=== PATIENT | female | born 1945 | race Caucasian/White ===

== ENCOUNTER 2025-07-06 11:09 | Emergency (ER) | payer MEDICARE, MEDICAID, SELFPAY ==
[2025-07-06 11:13] VITALS: BP 141/79; PULSE 94; RESP 18; TEMP 37.3; O2SAT 97; BMI 21.9
[2025-07-06 11:18] VITALS: PULSE 92; O2SAT 97
[2025-07-06 11:45] VITALS: BP 180/77; PULSE 95; RESP 18; TEMP 36.9; O2SAT 97; BMI 21.9
--- NOTE | 2025-07-06 11:46 | EDNOTE_ITS ---
<Statement entered by Briana Hill MD - 07/21/25 07:24> As co-signing physician, I was present and available for consult prn. I concur with the plan and care as documented by the midlevel provider. ED Back Injury Pain RME/HPI General Chief Complaint: Back Pain/Injury Stated Complaint: BACK PAIN Time Seen by Provider: 07/06/25 11:34 Arrival date/time: 07/06/25 11:09 79-year-old female patient with significant history of scoliosis, came in for evaluation regarding low back pain. Onset of symptoms since yesterday patient woke up with low back pain, described as dull ache, severity moderate associated with urinary frequency. Patient denies any dysuria. Denies any urinary inc ontinence denies any bowel incontinence denies any fall or trauma denies any fever denies any vomiting denies any abdominal pain. No medication was taken prior to ER visit. Related Data Home Medications ?Medication ?Instructions ?Recorded ?Confirmed clonidine HCl 0.1 mg tablet 0.1 mg PO BID #0 tabs 09/1801/03/21 fluticasone furoate 27.5 2 spry NASAL QDAY #0 spry 01/03/21 mcg/actuation nasal spray,suspension (Veramyst) hydrochlorothiazide 25 mg tablet 25 mg PO QAM #0 tabs 09/29/14 01/03/21 lovastatin 40 mg tablet 40 mg PO HS #0 tabs 09/29/14 01/03/21 montelukast 10 mg tablet 10 mg PO AM #0 tabs 09/29/14 01/03/21 (Singulair) multivitamin (Tab-A-Olga tablet) 1 tab PO QDAY ##0 07/0401/03/21 omeprazole 20 mg capsule,delayed 1 tab PO DAILY ##0 01/03/21 release tramadol 50 mg tablet (Ultram) 50 mg PO Q4HR PRN PAIN #0 tabs 09/29/14 01/03/21 trazodone 50 mg tablet 50 mg PO QDAY #0 tabs 01/03/21 albuterol 90 mcg/actuation aerosol 90 mcg inhalation Q 6HR 11/08/20 01/03/21 inhaler amlodipine 5 mg tablet 5 mg PO QDAY 11/08/20 budesonide-formoterol HFA 160 2 puff inhalation BID 01/03/21 mcg-4.5 mcg/actuation aerosol inhaler (Symbicort) cholecalciferol (vitamin D3) 25 25 mcg PO QDAY 1 01/03/21 mcg (1,000 unit) tablet (Vitamin D3) ferrous sulfate 325 mg (65 mg 325 mg PO QDAY 11/08/20 01/03/21 iron) tablet (iron) fluticasone 250 mcg-salmeterol 50 1 inh inhalation BID 11/08/20 01/03/21 mcg/dose blistr powdr for inhalation (Advair Diskus) ipratropium 0.5 mg-albuterol 3 mg 3 ml inhalation Q4HR 11/08/20 01/03/21 (2.5 mg base)/3 mL nebulization soln losartan 100 mg tablet 100 mg PO QDAY 11/08/2012/19 metoprolol tartrate 50 mg tablet 50 mg PO QDAY 1 01/04/21 omega-3 fatty acids 1 cap PO QDAY 11/08/2001/03 budesonide-formoterol HFA 160 2 puff inhalation BID 01/03/21 mcg-4.5 mcg/actuation aerosol inhaler (Symbicort) Previous Rx's ?Medication ?Instructions ?Recorded acetaminophen 300 mg-codeine 30 mg 1 tab PO Q8H PRN pa in #20 tabs 07/06/25 tablet cyclobenzaprine 5 mg tablet 5 mg PO TID PRN muscle spa sm #15 07/06/25 tabs Allergies Allergy/AdvReac Type Severity Reaction Status Date / Time bacitracin (From Neosporin Allergy Mild Rash Verified 07/06/25 11:18 ([id number])) neomycin (From Neosporin Allergy Mild Rash Verified 07/06/25 11:18 ([id number])) Penicillins Allergy Mild Rash Verified 07/06/25 11:18 polymyxin B (From Neosporin Allergy Mild Rash Verified 07/06/25 11:18 ([id number])) Review of Systems Review of Systems Narrative Review of Systems: review of system reviewed and within normal limits except mentioned in HPI. ED Exam Narrative Physical exam: VITAL SIGNS: Reviewed. GENERAL APPEARANCE: Alert and interactive, follows commands, no acute distress, HEAD AND FACE: Non-traumatic. ENT: PERRL, pink conjunctivitis, eyelid no trauma, Mucous membrane moist. NECK: Supple, nontender, no nuchal rigidity. CHEST: No tenderness, no crepitus, no paradoxical movement, no retractions. LUNGS: Clear, well ventilated, symmetric, no rales, no wheezing, no ronchi, no s tridor, good breath sounds bilaterally. HEART: Regular rate, regular rhythm, no murmur, no gallops. ABDOMEN: Soft, positive bowel sounds, nondistended, no guarding, nontender, no rebound, no masses, RECTAL: Deferred. GENITAL: Deferred. NEUROLOGICAL: Gross motor function intact sensory function intact, Appropriate for age. MUSCULOSKELETAL: low back tenderness I reviewed here but I do not think so, full range of motion. EXTREMITIES: Nontender, full range of motion. SKIN: Color pink, dry, no rash, no lacerations, no abrasions, no contusions. LYMPHATICS: Deferred. Course Quality Measures none Orders Category Date Time Status XR lumbar spine 2-3V Stat Exams 07/06/25 11:51 Completed XR sacrum coccyx min 2V Stat Exams 07/06/25 11:51 Completed CBC [CBC] Stat Lab 07/06/25 12:02 Completed CMP [Comprehensive Metabolic Panel] Stat Lab 07/06/25 12:02 Completed UA, C/S IF [Urinalysis, C/S if Indicated] Stat Lab 07/06/25 14:43 Completed HYDROcodone/APAP 10/325 [[place] 10/325] Med 07/06/25 14:28 Discontinued 1 tab PO X1 ONE Ketorolac Inj [Toradol Inj] Med 07/06/25 11:51 Discontinued 30 mg IM X1 ONE Potassium Chloride [K-Dur] Med 07/06/25 14:28 Discontinued 40 meq PO X1 ONE Vital Signs Vital signs: Vital Signs Temperature 99.1 F 07/06/25 11:13 Pulse Rate 94 07/06/25 11:13 Respiratory Rate 18 07/06/25 11:13 Blood Pressure 141/79 H 07/06/25 11:13 Pulse Oximetry (%) 97 07/06/25 11:13 Oxygen Delivery Method Room Air 07/06/25 11:13 Back Pain / Injury MDM Narrative MDM Narrative:: 07/06/25 11:09 79-year-old female patient with significant history of scoliosis, came in for evaluation regarding low back pain. Onset of symptoms since yesterday patient woke up with low back pain, described as dull ache, severity moderate associated with urinary frequency. Patient denies any dysuria. Denies any urinary incontinence denies any bowel incontinence denies any fall or trauma denies any fever denies any vomiting denies any abdominal pain. No medication was taken prior to ER visit. Patient is able to recover including urinalysis all came back normal. X-ray of the lumbar spine came back with degenerative disc disease otherwise unremarkable no fracture or dislocation. X-ray of the is sacrum also came back with no acute fracture or dislocation noted. Results discussed with the patient and family. Patient is ambulatory further imaging is not needed at this time stable for discharge home Patient data External records reviewed:: None Clinical information provided by:: patient and family Social determinants that could affect healthcare access:: none Patient has the following chronic illnesses:: Hypertension How is presenting disease/condition affected by chronic disease/condition?: uneffected by Evaluation data The following diagnostics were reviewed and interpreted by me:: lab results and radiology exam(s) Lab and/or radiology exams considered but not ordered:: None Interpretation Summary: See above Medications / Prescriptions Medications or Prescriptions considered but not ordered:: None Medication administrations:: Medication Administration History Discontinued Medications Hydrocodone Bitart/Acetaminophen (Hydrocodone/Apap 10/325 Tab) 1 tab PO X1 ONE Stop: 07/06/25 14:29 Last Admin: 07/06/25 14:34 Dose: 1 tab Documented By: LP Ketorolac Tromethamine (Ketorolac Inj 30 Mg/Ml Vial) 30 mg IM X1 ONE Stop: 07/06/25 11:52 Last Admin: 07/06/25 12:40 Dose: 30 mg Documented By: OA Potassium Chloride (Potassium Chloride 20 Meq Tabcr) 40 meq PO X1 ONE Stop: 07/06/25 14:29 Last Admin: 07/06/25 14:34 Dose: 40 meq Documented By: LP Potassium Toradol and [place] Consultations Consultation(s) initiated? (list below): No Diagnosis Differential diagnosis back pain/injury: strain of lumbar region and other (Low back pain, sacral pain, coccydynia) Most likely diagnosis given after review of the tests above:: Sacral pain Admission Indicated Admission indicated?: not indicated Admission Request Was there a request for admission?: No Disposition Plan Disposition Plan: Discharge Discharge Attestation Discharge Attestation: The patient and all family members were given an opportunity to ask questions and understood the discharge instructions. Discharge instructions specifically effects, indications for sooner follow up or return to the emergency department, and the expected course of current diagnosis. Patient condition: Stable Discharge Plan Plan Patient Disposition: HOME (Self Care) Discharge Disposition comment: stable Prescriptions/Referrals Prescriptions/Med Rec: New acetaminophen-codeine 300-30 mg tablet 1 tab PO Q8H PRN (Reason: pain) Qty: 20 0RF cyclobenzaprine 5 mg tablet 5 mg PO TID PRN (Reason: muscle spasm) Qty: 15 0RF No Action multivitamin [Tab-A-Olga] 1 TAB tablet 1 tab PO QDAY Qty: 0 clonidine HCl 0.1 MG tablet 0.1 mg PO BID Qty: 0 trazodone 50 mg Tablet 50 mg PO QDAY Qty: 0 lovastatin 40 MG tablet 40 mg PO HS Qty: 0 tramadol [Ultram] 50 MG tablet 50 mg PO Q4HR PRN (Reason: PAIN) Qty: 0 Patient Comments: FOR PAIN, NOT TO EXCEED 8 TABS IN 24 HRS omeprazole 20 MG capsule,delayed release(DR/EC) 1 tab PO DAILY Qty: 0 montelukast [Singulair] 10 MG tablet 10 mg PO AM Qty: 0 hydrochlorothiazide 25 MG tablet 25 mg PO QAM Qty: 0 Veramyst 10 GM spray,suspension 2 spry NASAL QDAY Qty: 0 fluticasone propion-salmeterol [Advair Diskus] 250-50 mcg/dose Blister With Device 1 inh INHALATION BID ipratropium-albuterol 0.5 mg-3 mg(2.5 mg base)/3 mL Solution For Nebulization 3 ml INHALATION Q4HR amlodipine 5 mg Tablet 5 mg PO QDAY ferrous sulfate [iron] 325 mg (65 mg iron) Tablet 325 mg PO QDAY metoprolol tartrate 50 mg Tablet 50 mg PO QDAY albuterol 90 mcg/actuation Aerosol 90 mcg INHALATION Q6HR losartan 100 mg Tablet 100 mg PO QDAY omega-3 fatty acids Capsule 1 cap PO QDAY cholecalciferol (vitamin D3) [Vitamin D3] 25 mcg (1,000 unit) Tablet 25 mcg PO QDAY budesonide-formoterol [Symbicort] 160-4.5 mcg/actuation Hfa Aerosol Inhaler 2 puff INHALATION BID budesonide-formoterol [Symbicort] 160-4.5 mcg/actuation Hfa Aerosol Inhaler 2 puff INHALATION BID Referrals: [place] MD [Primary Care Provider, Internal Medicine] - In 1 week Problem List Clinical Impression: Pain in sacrum Patient/Caregiver Discharge Instructions Discharge Activity: activity as tolerated Education Materials: Understanding Coccydynia Additional Instructions: Thank you for the opportunity for serving you today. You are stable for discharged . You are advised to: Follow-up with your PCP in 1 to 2 days Return to ED for worsening of symptoms Increase oral fluids Take medication as prescribed Print Language: Turkmen Stand Alone Forms: Mary Carmen Award Info., Patient Portal Info Letter OSMANI/SAILAJA Supervising Physician OSMANI/SAILAJA Supervising Physician: MD Noam
--- NOTE | 2025-07-06 11:51 | XR_ITS ---
EXAMINATION: Sacrum and coccyx 3 views TECHNIQUE: AP, inclined AP lateral sacrum and coccyx 3 views Date and time: July 06, 2025, 12:24 p.m. INDICATIONS: Chronic sacral pain. FINDINGS: Severe osteopenia Symmetrical sacral foramina Mild bilateral hip osteoarthritis No acute sacral or coccygeal fracture IMPRESSION: No acute sacrococcygeal fracture
--- NOTE | 2025-07-06 11:51 | XR_ITS ---
EXAMINATION: Lumbar spine 3 views TECHNIQUE: AP lateral: Lateral lower lumbar spine 3 views Date and time: July 06, 2025, 1219 hours, comparison January 11, 2021 INDICATIONS: Severe back pain, chronic FINDINGS: Severe osteopenia Lumbar levoscoliosis 20 degrees Advanced degenerative disc disease at the lower 4 lumbar levels Chronic osteoporotic mild compressions L4, L3, L2 No acute lumbar fracture Prominent facet arthropathy IMPRESSION: Advanced degenerative disc disease at the lower 4 lumbar levels
[2025-07-06 12:33] LABS: Basophils # (Auto) 0.1 Thou/mm3 (0.0-0.2); Basophils % (Auto) 1 % (0-2.5); Eosinophils # (Auto) 0.1 Thou/mm3 (0.0-0.5); Eosinophils % (Auto) 1 % (0-10); Hematocrit 35.6 % (36.0-46.0); Hemoglobin 12.4 g/dL (12.0-16.0); Immature Granulocytes Auto 0.09 Thou/mm3 (0.00-0.00); Lymphocytes # (Auto) 2.5 Thou/mm3 (1.0-4.8); Lymphocytes % (Auto) 16 % (10-50); Mean Corpuscular HGB Conc 34.8 g/dl (31.0-37.0); Mean Corpuscular Hemoglobin 30.5 pg (25.0-35.0); Mean Corpuscular Volume 88 fL (80-100); Monocytes # (Auto) 1.5 Thou/mm3 (0.0-0.8); Monocytes % (Auto) 10 % (0-12); Neutrophils # (Auto) 11.6 Thou/mm3 (1.8-7.7); Neutrophils % (Auto) 73 % (37-80); Nucleated Red Blood Cell # 0.00 Thou/mm3 (0.00-0.00); Nucleated Red Blood Cell % 0 /100 WBC (0); Platelet Count 380 Thou/mm3 (140-440); RDW Standard Deviation 40.5 fL (36.4-46.3); Red Blood Count 4.06 Miln/mm3 (4.00-5.20); White Blood Count 15.8 Thou/mm3 (3.6-11.0)
[2025-07-06] MEDS: KETOROLAC INJ 30 MG/ML VIAL IM (12:40)
[2025-07-06 12:44] LABS: Alanine Aminotransferase 24 U/L (10-49); Albumin, Serum 5.0 gm/dL (3.4-4.8); Albumin/Globulin Ratio 1.6 (1.2-2.2); Alkaline Phosphatase 119 U/L (46-116); Anion Gap 11 (7-16); Aspartate Amino Transferase 25 U/L (0-34); BUN/Creatinine Ratio 20 Ratio (12-20); Bilirubin,Total 0.4 mg/dL (0.3-1.2); Blood Urea Nitrogen 16 mg/dL (9-23); Calcium 10.3 mg/dL (8.3-10.6); Calcium (Corrected) 10.3 mg/dL (8.5-10.1); Carbon Dioxide 27.6 mMol/L (20.0-31.0); Chloride 98 mMol/L (98-107); Creatinine (Component) 0.8 mg/dL (0.6-1.3); Estimated Creatinine Clearance 56.4 mL/min (>60); Globulin 3.2 gm/dL (2.3-3.5); Glucose 140 mg/dL (74-106); Osmolality,Calculated 277 (275-295); Potassium 3.2 mMol/L (3.4-5.1); Sodium 137 mMol/L (136-145); Total Protein 8.2 gm/dL (5.7-8.2); eGFR > 60 See Note
[2025-07-06 14:50] LABS: Collection Type, Urine Clean Catch
[2025-07-06 14:56] LABS: Bacteria,Urine Rare; Bilirubin,Urine Negative (Negative); Blood,Urine Negative (Negative); Clarity,Urine Clear (Clear/Hazy); Color,Urine Lt-Yellow (Lt Yel-Yel); Culture Indicated,Urine Not Indicated; Glucose, Urine Negative (Negative); Ketones,Urine Negative (Negative); Leukocyte Esterase,Urine Negative (Negative); Nitrite,Urine Negative (Negative); PH,Urine 7.0 (5.0-7.0); Protein,Urine Negative (Neg - Trace); RBC,Urine 5 /hpf (0-3); Specific Gravity,Urine 1.015 (1.001-1.035); Squamous Epithelial Cell,Urine 1 /hpf (0-5); Urobilinogen,Urine Negative mg/dL (0.0-1.0); WBC,Urine 1 /hpf (0-5)
== END 2025-07-06 15:52 | disposition home or self-care (01) ==
PROVIDERS: Nurse Practitioner Family; Emergency Provider Emergency Medicine; PCP Internal Medicine
DX: M53.3 Sacrococcygeal disorders, not elsewhere classified (principal); M51.360 Other intervertebral disc degeneration, lumbar region with discogenic back pain only
CPT/HCPCS: 36415; 72100; 72220; 80053; 81001; 85025; 96372; 99283; J1885; A9270

== ENCOUNTER 2025-07-08 18:55 | Emergency (ER) | payer MEDICARE, MEDICAID, SELFPAY ==
[2025-07-08 19:20] VITALS: PULSE 109; RESP 22; O2SAT 97; BMI 21.9
[2025-07-08 20:36] VITALS: BP 147/82; PULSE 88; RESP 20; TEMP 36.5; O2SAT 98
--- NOTE | 2025-07-08 20:45 | XR_ITS ---
Examination: CT lumbar spine, without contrast. 2-D sagittal reconstructions. 2-D coronal reconstructions. 3-D reconstructions. Date and time of exam: July 08, 2025, 213 hours INDICATIONS: Back pain radiating to the legs inability to walk beginning 3 days ago CTDI: vol (mGy): 15.75 DLP: (mGycm): 571 Technique: Multiple 1.25 mm axial sections of the lumbar spine without intravenous contrast have been obtained. 2-D sagittal and coronal reconstructions have been obtained. 3-D reconstructions have been obtained. Low dose protocols were performed. One or more of the following dose reduction techniques were used; automated exposure control, adjustment of the mA and/or KV according to patient size, use of iterative reconstruction technique. Findings: Grade 1 anterolisthesis L2 on L3, L3 on L4, L4 on L5 Advanced degenerative disc disease L2-L3, L3-L4, L4-L5 Severe osteopenia No acute lumbar fracture L5-S1 no disc protrusion L4-L5 severe spinal stenosis, 8 mm central lumbar disc bulge, facet arthropathy and thickening of ligamentum flavum severely circumferentially narrowing the thecal sac, axial image 87 including severe bilateral L4 ganglionic compression L3-L4 moderate overall spinal stenosis, 4 mm central lumbar disc bulge, facet arthropathy and thickening of ligamentum flavum surrounding the thecal sac with moderate left L3 ganglionic compression L2-L3 moderate overall spinal stenosis, 4 mm central subarticular osteophyte disc complex, facet arthropathy and thickening of ligamentum flavum circumferentially narrowing the thecal sac L1-L2 no disc protrusion IMPRESSION: L4-L5 severe spinal stenosis L3-L4 L2-L3 moderate overall spinal stenosis as above Recommend MRI lumbar spine without contrast follow-up
--- NOTE | 2025-07-08 20:46 | PD.EDRME ---
Rapid Medical Screening Exam [facility] Arrival date/time: 07/08/25 18:55 79F with history of scoliosis presents to ED with several days of worsening low back pain that radiates down to both legs. Patient was recently here for this. Patient states prescribed meds hasn't helped. She's unable to stand when she usually walks. Some urinary incontinence, but that's normal for her. No bowel incontinence. Chief Complaint: Back Pain/Injury Vital signs: Vital Signs Temperature 97.7 F 07/08/25 20:36 Pulse Rate 88 07/08/25 20:36 Respiratory Rate 20 07/08/25 20:36 Blood Pressure 147/82 H 07/08/25 20:36 Pulse Oximetry (%) 98 07/08/25 20:36 Oxygen Delivery Method Room Air 07/08/25 20:36 Exam: No midline back tenderness. Upper thigh tenderness. Appears to be in pain. Clinical Impression: back pain vs cauda equina vs rhabdo vs DDD
[2025-07-08] MEDS: MORPHINE SULF LIQD 10 MG/5 ML UDC 5 MG PO (20:53)
[2025-07-08 21:31] LABS: Basophils # (Auto) 0.1 Thou/mm3 (0.0-0.2); Basophils % (Auto) 1 % (0-2.5); Eosinophils # (Auto) 0.3 Thou/mm3 (0.0-0.5); Eosinophils % (Auto) 2 % (0-10); Hematocrit 35.9 % (36.0-46.0); Hemoglobin 12.3 g/dL (12.0-16.0); Immature Granulocytes Auto 0.04 Thou/mm3 (0.00-0.00); Lymphocytes # (Auto) 3.5 Thou/mm3 (1.0-4.8); Lymphocytes % (Auto) 27 % (10-50); Mean Corpuscular HGB Conc 34.3 g/dl (31.0-37.0); Mean Corpuscular Hemoglobin 30.4 pg (25.0-35.0); Mean Corpuscular Volume 89 fL (80-100); Monocytes # (Auto) 0.9 Thou/mm3 (0.0-0.8); Monocytes % (Auto) 7 % (0-12); Neutrophils # (Auto) 7.9 Thou/mm3 (1.8-7.7); Neutrophils % (Auto) 62 % (37-80); Nucleated Red Blood Cell # 0.00 Thou/mm3 (0.00-0.00); Nucleated Red Blood Cell % 0 /100 WBC (0); Platelet Count 385 Thou/mm3 (140-440); RDW Standard Deviation 41.6 fL (36.4-46.3); Red Blood Count 4.05 Miln/mm3 (4.00-5.20); White Blood Count 12.7 Thou/mm3 (3.6-11.0)
[2025-07-08 21:47] LABS: Alanine Aminotransferase 27 U/L (10-49); Albumin, Serum 4.5 gm/dL (3.4-4.8); Albumin/Globulin Ratio 1.3 (1.2-2.2); Alkaline Phosphatase 131 U/L (46-116); Anion Gap 10 (7-16); Aspartate Amino Transferase 28 U/L (0-34); BUN/Creatinine Ratio 15 Ratio (12-20); Bilirubin,Total 0.3 mg/dL (0.3-1.2); Blood Urea Nitrogen 15 mg/dL (9-23); Calcium 10.7 mg/dL (8.3-10.6); Calcium (Corrected) 10.7 mg/dL (8.5-10.1); Carbon Dioxide 26.8 mMol/L (20.0-31.0); Chloride 99 mMol/L (98-107); Creatine Kinase 107 U/L (34-171); Creatinine (Component) 1.0 mg/dL (0.6-1.3); Estimated Creatinine Clearance 45.1 mL/min (>60); Globulin 3.5 gm/dL (2.3-3.5); Glucose 131 mg/dL (74-106); Osmolality,Calculated 274 (275-295); Potassium 3.4 mMol/L (3.4-5.1); Sodium 136 mMol/L (136-145); Total Protein 8.0 gm/dL (5.7-8.2); eGFR 58 See Note
[2025-07-08 22:58] VITALS: BP 179/96; PULSE 76; RESP 16; TEMP 36.6; O2SAT 99
--- NOTE | 2025-07-08 23:30 | PD.EDBACK ---
ED Back Injury Pain RME/HPI General Chief Complaint: Back Pain/Injury Stated Complaint: LEG PAIN Time Seen by Provider: 07/08/25 20:49 Arrival date/time: 07/08/25 18:55 RME / HPI RME / HPI Narrative: 07/08/25 18:55 79F with history of scoliosis presents to ED with several days of worsening low back pain that radiates down to both legs. Patient was recently here for this. Patient states prescribed meds hasn't helped. She's unable to stand when she usually walks. Some urinary incontinence, but that's normal for her. No bowel incontinence. DR. BRANCH MAIN ED EVALUATION: 79 y/o female with Hx of Arthritis and Scoliosis presents to ED c/o severe lower back pain radiating down below the left buttock x 3 days. Patient was seen in ED 3 days ago and states that pain worsened significantly when asked to sit in a wheelchair. Today, patient was treated with Morphine PO and a steroid prior to initial evaluation with no relief. Denies history of pacemaker or any other metals throughout the head and body. No other complaints. Exam: No midline back tenderness. Upper thigh tenderness. Appears to be in pain. Impression: back pain vs cauda equina vs rhabdo vs DDD Related Data Home Medications ?Medication ?Instructions ?Recorded ?Confirmed clonidine HCl 0.1 mg tablet 0.1 mg PO BID #0 tabs 09/29/14 01/03/21 fluticasone furoate 27.5 2 spry NASAL QDAY #0 spry 09/29/14 01/03/21 mcg/actuation nasal spray,suspension (Veramyst) hydrochlorothiazide 25 mg tablet 25 mg PO QAM #0 tabs 09/29/14 01/03/21 lovastatin 40 mg tablet 40 mg PO HS #0 tabs 09/29/14 01/03/21 montelukast 10 mg tablet 10 mg PO AM #0 tabs 09/29/14 01/03/21 (Singulair) multivitamin (Tab-A-Olga tablet) 1 tab PO QDAY ##0 09/29/14 01/03/21 omeprazole 20 mg capsule,delayed 1 tab PO DAILY ##0 09/29/14 01/03/21 release tramadol 50 mg tablet (Ultram) 50 mg PO Q4HR PRN PAIN #0 tabs 09/29/14 01/03/21 trazodone 50 mg tablet 50 mg PO QDAY #0 tabs 09/29/14 01/03/21 albuterol 90 mcg/actuation aerosol 90 mcg inhalation Q6HR 11/08/20 01/03/21 inhaler amlodipine 5 mg tablet 5 mg PO QDAY 11/08/20 01/03/21 budesonide-formoterol HFA 160 2 puff inhalation BID 11/08/20 01/03/21 mcg-4.5 mcg/actuation aerosol inhaler (Symbicort) cholecalciferol (vitamin D3) 25 25 mcg PO QDAY 11/08/20 01/03/21 mcg (1,000 unit) tablet (Vitamin D3) ferrous sulfate 325 mg (65 mg 325 mg PO QDAY 11/08/20 01/03/21 iron) tablet (iron) fluticasone 250 mcg-salmeterol 50 1 inh inhalation BID 11/08/20 01/03/21 mcg/dose blistr powdr for inhalation (Advair Diskus) ipratropium 0.5 mg-albuterol 3 mg 3 ml inhalation Q4HR 11/08/20 01/03/21 (2.5 mg base)/3 mL nebulization soln losartan 100 mg tablet 100 mg PO QDAY 11/08/20 01/04/21 metoprolol tartrate 50 mg tablet 50 mg PO QDAY 11/08/20 01/04/21 omega-3 fatty acids 1 cap PO QDAY 11/08/20 01/03/21 budesonide-formoterol HFA 160 2 puff inhalation BID 01/03/21 01/03/21 mcg-4.5 mcg/actuation aerosol inhaler (Symbicort) Previous Rx's ?Medication ?Instructions ?Recorded acetaminophen 300 mg-codeine 30 mg 1 tab PO Q8H PRN pain #20 tabs 07/06/25 tablet cyclobenzaprine 5 mg tablet 5 mg PO TID PRN muscle spasm #15 07/06/25 tabs morphine 15 mg immediate release 15 mg PO Q6H PRN pain #20 tabs 07/08/25 tablet Allergies Allergy/AdvReac Type Severity Reaction Status Date / Time bacitracin (From Neosporin Allergy Mild Rash Verified 07/06/25 11:18 ([id number])) neomycin (From Neosporin Allergy Mild Rash Verified 07/06/25 11:18 ([id number])) Penicillins Allergy Mild Rash Verified 07/06/25 11:18 polymyxin B (From Neosporin Allergy Mild Rash Verified 07/06/25 11:18 ([id number])) Review of Systems Review of Systems Systems Reviewed: All systems reviewed, normal except as documented Past Medical History Past Medical History CARDIAC: Positive Cardiac Disorders, Hypertension (TAKES MED) and Hypotension (TAKES MED) RESPIRATORY: Positive Chronic Obstructive Pulmonary Disease (COPD) (HAS INHALER), Emphysema and Pneumonia (x2) GASTROINTESTINAL: Positive Gastrointestinal Disorders and Gastroesophageal Reflux Disease REPRODUCTIVE: Positive Previous Pregnancies (X4) MUSCULOSKELETAL: Positive Musculoskeletal Disorders, Arthritis and Scoliosis ENT: Positive Cataracts (RIGHT) HEMATOLOGIC: Positive Blood Disorders and Anemia PSYCHO/SOCIAL: Positive Depression (on meds) and Anxiety (on meds) OTHER HISTORY: Positive Shingles (2011), Measles (child) and Mumps (child) Family History FAMILY HISTORY: Positive Family Respiratory Disorders (mother-COPD and emphesyma), Family Cardiac Disorders (FATHER (HTN)) and Family Surgery (MOTHER,FATHER,SISTER) ED Exam Narrative Physical exam: Generally patient is alert in no obvious distress, heart regular rate and rhythm, lungs clear to auscultation equal bilaterally, abdomen soft bowel sounds present nondistended nontender no pulsatile abdominal mass musculoskeletal exam shows the patient have bilateral lower paravertebral muscular tenderness to the lumbar spine. Neurologic exam shows no focal motor deficits. Course Quality Measures none Orders Category Date Time Status CT lumbar spine wo con Stat Exams 07/08/25 20:45 Completed CBC Stat Lab 07/08/25 21:14 Completed CMP [Comprehensive Metabolic Panel] Stat Lab 07/08/25 21:14 Completed Creatine Kinase Stat Lab 07/08/25 21:14 Completed Morphine Oral LIQUID Med 07/08/25 20:45 Discontinued 5 mg PO X1 ONE Morphine* Inj Med 07/08/25 23:32 Discontinued 4 mg IM X1 ONE dexAMETHasone INJ [Decadron Inj] Med 07/08/25 20:45 Discontinued 10 mg PO X1 ONE Vital Signs Vital signs: Vital Signs Temperature 97.7 F 07/08/25 20:36 Pulse Rate 88 07/08/25 20:36 Respiratory Rate 20 07/08/25 20:36 Blood Pressure 147/82 H 07/08/25 20:36 Pulse Oximetry (%) 98 07/08/25 20:36 Oxygen Delivery Method Room Air 07/08/25 20:36 Back Pain / Injury MDM Narrative MDM Narrative:: Scribe Attestation: I, Roxanne Wakefield, am scribing for and in the presence of Dr. Branch. Provider Notation: Although this document has been carefully reviewed, there may still be some phonetic and other typographical errors. These errors are purely grammatical due to imperfections in the software program and should not be construed in any way to compromise the substance of the patient's medical care during this visit. Patient was seen here 2 days ago with x-rays of the lumbosacral spine showing degenerative change. CT scan of the lumbar spine tonight showed foraminal stenosis from L2-L5. Patient will receive morphine 4 mg IM. Morphine as prescribed. Patient has been on Tylenol with codeine and Flexeril without benefit at home. Follow-up with her doctor. Patient has had MRIs in the past showing the foraminal stenosis so that this is not a new diagnosis for the patient. Patient data External records reviewed:: [facility] previous records (Reviewed prior ED records from 07/06/25. Patient was seen for Pain in sacrum.) Clinical information provided by:: patient and family (Daughter) Social determinants that could affect healthcare access:: none Patient has the following chronic illnesses:: Hypertension, Hypotension, Chronic Obstructive Pulmonary Disease (COPD), Emphysema, Gastroesophageal Reflux Disease, Arthritis, Scoliosis, Cataracts, Anemia, Depression, Anxiety How is presenting disease/condition affected by chronic disease/condition?: exacerbated by Evaluation data The following diagnostics were reviewed and interpreted by me:: lab results and radiology exam(s) Lab and/or radiology exams considered but not ordered:: None Interpretation Summary: RADIOLOGY L-Spine CT: Findings: Grade 1 anterolisthesis L2 on L3, L3 on L4, L4 on L5 Advanced degenerative disc disease L2-L3, L3-L4, L4-L5 Severe osteopenia No acute lumbar fracture L5-S1 no disc protrusion L4-L5 severe spinal stenosis, 8 mm central lumbar disc bulge, facet arthropathy and thickening of ligamentum flavum severely circumferentially narrowing the thecal sac, axial image 87 including severe bilateral L4 ganglionic compression L3-L4 moderate overall spinal stenosis, 4 mm central lumbar disc bulge, facet arthropathy and thickening of ligamentum flavum surrounding the thecal sac with moderate left L3 ganglionic compression L2-L3 moderate overall spinal stenosis, 4 mm central subarticular osteophyte disc complex, facet arthropathy and thickening of ligamentum flavum circumferentially narrowing the thecal sac L1-L2 no disc protrusion IMPRESSION: L4-L5 severe spinal stenosis L3-L4 L2-L3 moderate overall spinal stenosis as above Recommend MRI lumbar spine without contrast follow-up Medications / Prescriptions Medications or Prescriptions considered but not ordered:: None Medication administrations:: Medication Administration History Discontinued Medications Dexamethasone Sodium Phosphate (Dexamethasone Sod Phos Inj 10 Mg/Ml Vial) 10 mg PO X1 ONE Stop: 07/08/25 20:46 Last Admin: 07/08/25 20:53 Dose: 10 mg Documented By: ADRY Morphine Sulfate (Morphine Sulf Liqd 10 Mg/5 Ml Udc) 5 mg PO X1 ONE Stop: 07/08/25 20:46 Last Admin: 07/08/25 20:53 Dose: 5 mg Documented By: Morphine Sulfate (Morphine Sulf Inj 4 Mg/Ml Vial) 4 mg IM X1 ONE Stop: 07/08/25 23:33 See above if any. Consultations Consultation(s) initiated? (list below): No Diagnosis Differential diagnosis back pain/injury: lumbar radiculopathy, sciatica, strain of lumbar region, pyelonephritis, discitis and other (Cauda equina, Stenosis, Fracture) Most likely diagnosis given after review of the tests above:: None Admission Indicated Admission indicated?: not indicated Admission Request Was there a request for admission?: No Disposition Plan Disposition Plan: Discharge Discharge Attestation Discharge Attestation: The patient and all family members were given an opportunity to ask questions and understood the discharge instructions. Discharge instructions specifically effects, indications for sooner follow up or return to the emergency department, and the expected course of current diagnosis. Patient condition: Stable Discharge Plan Plan Patient Disposition: HOME (Self Care) Prescriptions/Referrals Prescriptions/Med Rec: New morphine 15 mg tablet 15 mg PO Q6H MDD 4 PRN (Reason: pain) Qty: 20 0RF No Action multivitamin [Tab-A-Olga] 1 TAB tablet 1 tab PO QDAY Qty: 0 clonidine HCl 0.1 MG tablet 0.1 mg PO BID Qty: 0 trazodone 50 mg Tablet 50 mg PO QDAY Qty: 0 lovastatin 40 MG tablet 40 mg PO HS Qty: 0 tramadol [Ultram] 50 MG tablet 50 mg PO Q4HR PRN (Reason: PAIN) Qty: 0 Patient Comments: FOR PAIN, NOT TO EXCEED 8 TABS IN 24 HRS omeprazole 20 MG capsule,delayed release(DR/EC) 1 tab PO DAILY Qty: 0 montelukast [Singulair] 10 MG tablet 10 mg PO AM Qty: 0 hydrochlorothiazide 25 MG tablet 25 mg PO QAM Qty: 0 Veramyst 10 GM spray,suspension 2 spry NASAL QDAY Qty: 0 fluticasone propion-salmeterol [Advair Diskus] 250-50 mcg/dose Blister With Device 1 inh INHALATION BID ipratropium-albuterol 0.5 mg-3 mg(2.5 mg base)/3 mL Solution For Nebulization 3 ml INHALATION Q4HR amlodipine 5 mg Tablet 5 mg PO QDAY ferrous sulfate [iron] 325 mg (65 mg iron) Tablet 325 mg PO QDAY metoprolol tartrate 50 mg Tablet 50 mg PO QDAY albuterol 90 mcg/actuation Aerosol 90 mcg INHALATION Q6HR losartan 100 mg Tablet 100 mg PO QDAY omega-3 fatty acids Capsule 1 cap PO QDAY cholecalciferol (vitamin D3) [Vitamin D3] 25 mcg (1,000 unit) Tablet 25 mcg PO QDAY budesonide-formoterol [Symbicort] 160-4.5 mcg/actuation Hfa Aerosol Inhaler 2 puff INHALATION BID budesonide-formoterol [Symbicort] 160-4.5 mcg/actuation Hfa Aerosol Inhaler 2 puff INHALATION BID acetaminophen-codeine 300-30 mg tablet 1 tab PO Q8H PRN (Reason: pain) Qty: 20 0RF cyclobenzaprine 5 mg tablet 5 mg PO TID PRN (Reason: muscle spasm) Qty: 15 0RF Referrals: No Primary/Family,Physician [Primary Care Provider] - In 1 week Problem List Clinical Impression: Lumbar foraminal stenosis Patient/Caregiver Discharge Instructions Additional Instructions: Stop the Tylenol with codeine and muscle relaxer. Take the morphine as prescribed. Apply warm to painful areas. Follow-up with your doctor for further treatment and evaluation. Print Language: [employer] Stand Alone Forms: [facility] Award Info., Patient Portal Info Letter
[2025-07-08] MEDS: MORPHINE SULF INJ 4 MG/ML VIAL IM (23:45)
[2025-07-08 23:57] VITALS: BP 152/68; PULSE 84; RESP 20; TEMP 36.9; O2SAT 96
== END 2025-07-09 00:05 | disposition home or self-care (01) ==
PROVIDERS: Physician Assistant; Emergency Provider Emergency Medicine
DX: M48.061 Spinal stenosis, lumbar region without neurogenic claudication (principal)
CPT/HCPCS: 36415; 72131; 80053; 82550; 85025; 96372; 99283; J1100; J2270; A9270